=== PATIENT | female | born 1960 | race Two or more races ===

== ENCOUNTER 2025-01-17 10:09 | Emergency (ER) | payer OTHER ==
[~2025-01-17] VITALS: Ht 160 cm; Wt 77.7 kg
[2025-01-17 10:24] VITALS: TEMP 97.9
[2025-01-17] MEDS: KETOROLAC TROMETHAMINE 30 MG/ML VIAL IM ONE (12:50)
[2025-01-17] MEDS ORDERED: IBUP-1492 PO (14:59)
[2025-01-17 15:20] VITALS: BP 107/83; PULSE 78; RESP 14; O2SAT 99
== END 2025-01-17 15:30 | disposition home or self-care (01) ==
LOC: EMS 11:45
DX: M25.562 Pain in left knee (principal); I10 Essential (primary) hypertension
CPT/HCPCS: 99283; 73562; 96372; J1885